=== PATIENT | female | born 1945 | race Caucasian/White ===

== ENCOUNTER 2018-03-20 10:09 | Inpatient (IN) | payer OTHER ==
[~2018-03-20] VITALS: Ht 160 cm; Wt 88.9 kg
[~2018-03-20 10:09] MED LIST: FURO-151; LEVO500T2 PO
[2018-03-20 12:23] LABS: BASOPHILS % 0.8 % (0.0-2.0); EOSINOPHILS % 8.4 % (0.0-5.0); HEMATOCRIT. 37.8 % (36.0-48.0); HEMOGLOBIN. 12.3 g/dL (12.0-16.0); LYMPHOCYTES % 24.1 % (20.0-50.0); MEAN CORPUSCULAR HEMOGLOBIN 27.9 pg (28.0-32.0); MEAN PLATELET VOLUME 8.7 fl (7.4-10.4); MONOCYTES % 8.1 % (2.0-8.0); NEUTROPHILS % 58.6 % (40.0-76.0); PLATELET 357 x1000/uL (130-400); RED CELL DISTRIBUTION WIDTH 14.7 % (11.6-14.6)
[2018-03-20 12:27] LABS: CHLORIDE 110 mEq/L (98-107)
[2018-03-20 12:58] LABS: *AMPHETAMINES SCREEN URINE PRESUMTIVE POSITIVE (NEGATIVE); *BARBITURATES SCREEN URINE NEGATIVE (NEGATIVE)
[2018-03-20 12:59] LABS: *BENZODIAZEPINES SCREEN URINE NEGATIVE (NEGATIVE); *COCAINE SCREEN URINE NEGATIVE (NEGATIVE); CANNABINOID URINE SCREEN NEGATIVE (NEGATIVE); METHADONE URINE SCREEN NEGATIVE (NEGATIVE); OPIATES URINE SCREEN NEGATIVE (NEGATIVE); PHENCYCLIDINE URINE SCREEN NEGATIVE (NEGATIVE)
[2018-03-20] MEDS: VANCOMYCIN 1 G PREMIX 200 ML IV SCH (13:41)
[2018-03-20 16:00] VITALS: BP 127/65
[2018-03-20] MEDS ORDERED: DOCUSATE SODIUM 100MG CAPSULE PO PRN (16:15)
[2018-03-20] MEDS ORDERED: ACETAMINOPHEN 325MG TABLET PO PRN (16:15)
[2018-03-20] MEDS ORDERED: IPRATROPIUM/ALBUTEROL 0.5-3(2.5)MG/3ML NEB INH PRN (16:15)
[2018-03-20] MEDS ORDERED: HYDROCODONE/ACETAMINOPHEN 10/325MG TABLET PO PRN (16:15)
[2018-03-20] MEDS ORDERED: DIPHENHYDRAMINE 50MG/ML VIAL IV PRN (16:15)
[2018-03-20] MEDS ORDERED: ACETAMINOPHEN 650MG SUPP PR PRN (16:15)
[2018-03-20] MEDS ORDERED: GUAIFENESIN 200MG/10ML SUGAR FREE UDC PO PRN (16:15)
[2018-03-20] MEDS ORDERED: ACETAMINOPHEN 650MG/20.3ML UDC GT PRN (16:15)
[2018-03-20] MEDS ORDERED: CLONIDINE 0.1MG TABLET PO PRN (16:15)
[2018-03-20] MEDS ORDERED: NA PHOS,M-B/NA PHOS,DI-BA ENEMA 118ML PR PRN (16:15)
[2018-03-20] MEDS ORDERED: MAGNESIUM/ALUMINUM HYDROXIDE/SIMETHICONE 30ML UDC PO PRN (16:15)
[2018-03-20 20:00] VITALS: BP 121/63
[2018-03-20] MEDS ORDERED: LEVOFLOXACIN 500MG PREMIX 100 ML IV SCH (20:00)
[2018-03-20 21:00] VITALS: BP 121/63
[2018-03-20] MEDS: ENOXAPARIN 30MG/0.3ML SYR SUBCUT SCH (23:02)
[2018-03-20] MEDS: SODIUM CHLORIDE 0.9% INJ 3ML FLUSH IVF SCH (23:03)
[2018-03-21] VITALS: BP 117/62
[2018-03-21 04:00] VITALS: BP 116/65
[2018-03-21] MEDS ORDERED: VANCOMYCIN 750 MG PREMIX 150 ML IV SCH (05:00)
[2018-03-21 06:42] LABS: EOSINOPHILS % 12.5 % (0.0-5.0); HEMATOCRIT. 35.8 % (36.0-48.0); HEMOGLOBIN. 11.6 g/dL (12.0-16.0); LYMPHOCYTES % 30.2 % (20.0-50.0); MEAN PLATELET VOLUME 9.4 fl (7.4-10.4); MONOCYTES % 9.8 % (2.0-8.0); NEUTROPHILS % 46.5 % (40.0-76.0); PLATELET 309 x1000/uL (130-400); RED BLOOD CELL COUNT 4.16 mill/uL (4.2-5.4)
[2018-03-21 07:30] LABS: CHLORIDE 112 mEq/L (98-107)
[2018-03-21 08:00] VITALS: BP 113/65
[2018-03-21] MEDS: HYDROCODONE/ACETAMINOPHEN 5/325MG TABLET PO PRN ×2 (08:10→13:50)
[2018-03-21] MEDS: ENOXAPARIN 30MG/0.3ML SYR SUBCUT SCH ×2 (08:11→20:46)
[2018-03-21 12:00] VITALS: BP 97/50
[2018-03-21] MEDS: VANCOMYCIN 1 G PREMIX 200 ML IV SCH (12:08)
[2018-03-21] MEDS: SODIUM CHLORIDE 0.9% INJ 3ML FLUSH IVF SCH ×2 (13:49→23:27)
[2018-03-21 16:00] VITALS: BP 125/67
[2018-03-21] MEDS: NYSTATIN POWDER 15GM TOP SCH (16:56)
[2018-03-21 18:42] LABS: CLARITY URINE CLEAR (CLEAR); COLOR URINE YELLOW (YELLOW); KETONES URINE NEGATIVE (NEGATIVE); LEUKOCYTE ESTERASE URINE NEGATIVE (NEGATIVE); NITRITE URINE NEGATIVE (NEGATIVE); OCCULT BLOOD URINE NEGATIVE (NEGATIVE); PROTEIN URINE NEGATIVE (NEGATIVE); SPECIFIC GRAVITY URINE 1.017 (1.005-1.030); UROBILINOGEN URINE 0.2 E.U./dL (0.2-1.0)
[2018-03-21 20:00] VITALS: BP 125/59
[2018-03-21] MEDS: LEVOFLOXACIN 500MG PREMIX 100 ML IV SCH (23:26)
[2018-03-22] VITALS: BP 131/76
[2018-03-22 04:00] VITALS: BP 128/78
[2018-03-22] MEDS: SODIUM CHLORIDE 0.9% INJ 3ML FLUSH IVF SCH ×3 (07:14→22:41)
[2018-03-22 08:00] VITALS: BP 135/79
[2018-03-22] MEDS: VANCOMYCIN 1 G PREMIX 200 ML IV SCH (09:11)
[2018-03-22] MEDS: ENOXAPARIN 30MG/0.3ML SYR SUBCUT SCH ×2 (09:11→21:03)
[2018-03-22] MEDS: NYSTATIN POWDER 15GM TOP SCH ×2 (09:13→17:00)
[2018-03-22 12:00] VITALS: BP 114/61
[2018-03-22] MEDS: SODIUM HYPOCHLORITE 0.125% 473ML SOLUTION TOP SCH ×2 (12:19→22:41)
[2018-03-22 16:00] VITALS: BP 101/53
[2018-03-22 20:00] VITALS: BP 132/68
[2018-03-22] MEDS: LEVOFLOXACIN 500MG PREMIX 100 ML IV SCH (21:02)
[2018-03-23] VITALS: BP 141/95
[2018-03-23] MEDS: SODIUM HYPOCHLORITE 0.125% 473ML SOLUTION TOP SCH ×2 (00:18→09:19)
[2018-03-23 04:00] VITALS: BP 139/78
[2018-03-23] MEDS: SODIUM CHLORIDE 0.9% INJ 3ML FLUSH IVF SCH (05:12)
[2018-03-23 06:42] LABS: VANCOMYCIN TROUGH 11.9 ug/mL (5.0-10.0)
[2018-03-23] MEDS ORDERED: VANC750V2 IV (07:50)
[2018-03-23] MEDS: ENOXAPARIN 30MG/0.3ML SYR SUBCUT SCH (09:17)
[2018-03-23] MEDS: VANCOMYCIN 1 G PREMIX 200 ML IV SCH (09:17)
[2018-03-23] MEDS: NYSTATIN POWDER 15GM TOP SCH (09:19)
[2018-03-23 16:10] LABS: BASOPHILS % 1.1 % (0.0-2.0); EOSINOPHILS % 5.2 % (0.0-5.0); HEMATOCRIT. 38.3 % (36.0-48.0); HEMOGLOBIN. 12.5 g/dL (12.0-16.0); MEAN CORPUSCULAR VOLUME 85.5 fL (81.0-99.0); MEAN PLATELET VOLUME 9.3 fl (7.4-10.4); NEUTROPHILS % 55.7 % (40.0-76.0); PLATELET 348 x1000/uL (130-400); PROTHROMBIN TIME 10.1 sec (9.4-11.6); RED BLOOD CELL COUNT 4.48 mill/uL (4.2-5.4); RED CELL DISTRIBUTION WIDTH 14.4 % (11.6-14.6)
[2018-03-23 16:11] LABS: CHLORIDE 106 mEq/L (98-107)
[2018-03-23] MEDS ORDERED: LEVOFLOXACIN 500MG TABLET PO SCH (21:00)
[2018-03-24] MEDS ORDERED: VANCOMYCIN 1 G PREMIX 200 ML IV SCH ×2 (02:00)
== END 2018-03-23 15:55 | disposition left against medical advice (07) | DRG 579 ==
LOC: ER 12:21 → 6EST 14:11 → ENRESERV 16:10
PROVIDERS: ADMIT Family Medicine; ATTEND Family Medicine
PROC: 0KBN0ZZ Excision of Right Hip Muscle, Open Approach (ICD-10-PCS; principal; 2018-03-22)
DX: L03.116 Cellulitis of left lower limb (principal); L89.324 Pressure ulcer of left buttock, stage 4; L03.115 Cellulitis of right lower limb; E66.9 Obesity, unspecified; L30.8 Other specified dermatitis; F15.10 Other stimulant abuse, uncomplicated; Z53.21 Procedure and treatment not carried out due to patient leaving prior to being seen by health care provider; F17.210 Nicotine dependence, cigarettes, uncomplicated; R26.9 Unspecified abnormalities of gait and mobility; I11.0 Hypertensive heart disease with heart failure; I50.9 Heart failure, unspecified; Z86.718 Personal history of other venous thrombosis and embolism; Z86.73 Personal history of transient ischemic attack (TIA), and cerebral infarction without residual deficits; Z68.34 Body mass index [BMI] 34.0-34.9, adult; Z88.0 Allergy status to penicillin; Z86.14 Personal history of Methicillin resistant Staphylococcus aureus infection
CPT/HCPCS: 36415; 71045; 80048; 80053; 80202; 80305; 81003; 85025; 85610; 96365; 96366; 97162; 99285; J1650; J1956; J3370

== ENCOUNTER 2018-06-30 01:02 | Inpatient (IN) | payer OTHER ==
[~2018-06-30] VITALS: Ht 171.4 cm; Wt 95.3 kg
[~2018-06-30 01:02] MED LIST changes: -FURO-151; +FURO-151 PO; +VANC750V2 IV
[2018-06-30] MEDS ORDERED: ONDANSETRON HCL 4MG/2ML INJ IV STA ×2 (01:51→05:33)
[2018-06-30] MEDS ORDERED: MORPHINE SULFATE 4 MG/ML CPJ (NOT FOR IM USE) IV STA ×2 (01:51→05:33)
[2018-06-30] MEDS ORDERED: VANCOMYCIN 1 G PREMIX 200 ML IV ONE (02:00)
[2018-06-30] MEDS ORDERED: SODIUM CHLORIDE 0.9% 1000ML BAG (SEPSIS BOLUS) IV ONE (02:00)
[2018-06-30] MEDS ORDERED: LEVOFLOXACIN 750MG PREMIX 150 ML IV ONE (02:00)
[2018-06-30 03:35] LABS: BASOPHILS % 0.7 % (0.0-2.0); EOSINOPHILS % 5.7 % (0.0-5.0); HEMATOCRIT. 39.9 % (36.0-48.0); HEMOGLOBIN. 12.8 g/dL (12.0-16.0); LYMPHOCYTES % 15.3 % (20.0-50.0); MEAN CORPUSCULAR HEMOGLOBIN 28.4 pg (28.0-32.0); MEAN PLATELET VOLUME 8.5 fl (7.4-10.4); MONOCYTES % 4.8 % (2.0-8.0); NEUTROPHILS % 73.5 % (40.0-76.0); PLATELET 377 x1000/uL (130-400); RED BLOOD CELL COUNT 4.53 mill/uL (4.2-5.4)
[2018-06-30 03:42] LABS: PARTIAL THROMBOPLASTIN TIME 27.6 sec (23.4-31.0); PROTHROMBIN TIME 9.8 sec (9.1-11.1)
[2018-06-30 03:45] LABS: CHLORIDE 109 mEq/L (98-107)
[2018-06-30] MEDS ORDERED: FUROSEMIDE 40MG/4ML VIAL IV ONE (04:15)
[2018-06-30] MEDS ORDERED: NITROGLYCERIN 0.4MG TABLET SL SL PRN (04:15)
[2018-06-30] MEDS ORDERED: ASPIRIN 81MG TABLET PO ONE (04:15)
[2018-06-30] MEDS ORDERED: CLONIDINE 0.1MG TABLET PO PRN (16:45)
[2018-06-30] MEDS ORDERED: ONDANSETRON HCL 4MG/2ML INJ IV PRN (16:45)
[2018-06-30] MEDS ORDERED: TEMAZEPAM 15MG CAPSULE PO PRN (16:45)
[2018-06-30] MEDS ORDERED: MAGNESIUM HYDROXIDE 400MG/5ML 30ML UDC PO PRN (16:45)
[2018-06-30] MEDS ORDERED: ACETAMINOPHEN 325MG TABLET PO PRN (16:45)
[2018-06-30] MEDS ORDERED: DIPHENHYDRAMINE 50MG CAPSULE PO PRN (16:45)
[2018-06-30] MEDS ORDERED: IPRATROPIUM/ALBUTEROL 0.5-3(2.5)MG/3ML NEB INH PRN (16:45)
[2018-06-30] MEDS ORDERED: MAGNESIUM/ALUMINUM HYDROXIDE/SIMETHICONE 30ML UDC PO PRN (16:45)
[2018-06-30 20:40] VITALS: BP 105/46
[2018-06-30] MEDS ORDERED: ENOXAPARIN 40MG/0.4ML SYR SUBCUT SCH (21:00)
[2018-06-30] MEDS ORDERED: VANCOMYCIN 1250MG in DEXTROSE 5% WATER 250ML IV SCH (22:00)
[2018-06-30] MEDS: SODIUM CHLORIDE 0.9% INJ 3ML FLUSH IVF SCH (22:00)
[2018-06-30] MEDS: KETOROLAC 30MG/ML VIAL IV PRN (22:09)
[2018-06-30] MEDS ORDERED: LEVOFLOXACIN 250MG PREMIX 50 ML IV SCH (23:00)
[2018-06-30] MEDS: FAMOTIDINE 20MG TABLET PO SCH (23:25)
[2018-07-01 00:16] VITALS: BP 129/46
[2018-07-01 04:00] VITALS: BP 145/73
[2018-07-01 08:00] VITALS: BP 119/54
[2018-07-01] MEDS ORDERED: PNEUMOCOCCAL 23-VAL P-SAC VAC 0.5 ML IM ONE (08:00)
[2018-07-01] MEDS: KETOROLAC 30MG/ML VIAL IV PRN ×2 (09:19→22:05)
[2018-07-01] MEDS: DOCUSATE SODIUM 100MG CAPSULE PO SCH (09:19)
[2018-07-01] MEDS: METOLAZONE 10MG TABLET PO SCH (09:19)
[2018-07-01] MEDS ORDERED: LIDOCAINE HCL/PF 1% 10 MG/ML 30ML VIAL INFIL SCH (09:30)
[2018-07-01] MEDS ORDERED: INFLUENZA VIRUS VACCINE(AFLURIA) 0.5ML SYR IM ONE (10:00)
[2018-07-01] MEDS: ACETAMINOPHEN WITH CODEINE 300/30MG TABLET PO PRN (12:18)
[2018-07-01] MEDS: SODIUM CHLORIDE 0.9% INJ 3ML FLUSH IVF SCH ×2 (14:00→21:57)
[2018-07-01] MEDS: NYSTATIN 100,000 UNITS/GM CREAM 15GM TOP SCH (15:26)
[2018-07-01 16:00] VITALS: BP 127/62
[2018-07-01 17:10] LABS: CLARITY URINE CLEAR (CLEAR); COLOR URINE YELLOW (YELLOW); KETONES URINE NEGATIVE (NEGATIVE); LEUKOCYTE ESTERASE URINE NEGATIVE (NEGATIVE); NITRITE URINE NEGATIVE (NEGATIVE); OCCULT BLOOD URINE 1+ (NEGATIVE); PROTEIN URINE NEGATIVE (NEGATIVE); SPECIFIC GRAVITY URINE 1.011 (1.005-1.030); UROBILINOGEN URINE 0.2 E.U./dL (0.2-1.0)
[2018-07-01] MEDS: LEVOFLOXACIN 500MG PREMIX 100 ML IV SCH (18:20)
[2018-07-01 18:27] LABS: *AMPHETAMINES SCREEN URINE PRESUMTIVE POSITIVE (NEGATIVE); *BARBITURATES SCREEN URINE NEGATIVE (NEGATIVE); *BENZODIAZEPINES SCREEN URINE NEGATIVE (NEGATIVE); *COCAINE SCREEN URINE NEGATIVE (NEGATIVE); METHADONE URINE SCREEN NEGATIVE (NEGATIVE)
[2018-07-01 18:28] LABS: CANNABINOID URINE SCREEN NEGATIVE (NEGATIVE); OPIATES URINE SCREEN PRESUMTIVE POSITIVE (NEGATIVE); PHENCYCLIDINE URINE SCREEN NEGATIVE (NEGATIVE)
[2018-07-01] MEDS: ENOXAPARIN 30MG/0.3ML SYR SUBCUT SCH (21:56)
[2018-07-01] MEDS: VANCOMYCIN 1 G PREMIX 200 ML IV SCH (21:56)
[2018-07-01] MEDS: FAMOTIDINE 20MG TABLET PO SCH (21:57)
[2018-07-02 00:10] VITALS: BP 127/62
[2018-07-02 04:00] VITALS: BP 146/75
[2018-07-02] MEDS: NYSTATIN 100,000 UNITS/GM CREAM 15GM TOP SCH ×2 (06:00→17:48)
[2018-07-02] MEDS: SODIUM CHLORIDE 0.9% INJ 3ML FLUSH IVF SCH ×3 (06:00→20:45)
[2018-07-02 08:00] VITALS: BP 98/49
[2018-07-02] MEDS: METOLAZONE 10MG TABLET PO SCH (08:18)
[2018-07-02] MEDS: DOCUSATE SODIUM 100MG CAPSULE PO SCH (08:18)
[2018-07-02] MEDS: ENOXAPARIN 30MG/0.3ML SYR SUBCUT SCH ×2 (08:19→20:44)
[2018-07-02] MEDS: ACETAMINOPHEN WITH CODEINE 300/30MG TABLET PO PRN ×2 (08:27→20:49)
[2018-07-02 12:00] VITALS: BP 127/68
[2018-07-02] MEDS: VANCOMYCIN 1 G PREMIX 200 ML IV SCH (13:45)
[2018-07-02 16:00] VITALS: BP 116/72
[2018-07-02] MEDS: LEVOFLOXACIN 500MG PREMIX 100 ML IV SCH (17:49)
[2018-07-02 20:06] VITALS: BP 110/54
[2018-07-02 20:29] LABS: HEMATOCRIT 33.9 % (36.0-48.0); MEAN CORPUSCULAR HEMOGLOBIN 28.5 pg (28.0-32.0); MEAN CORPUSCULAR VOLUME 87.9 fL (81.0-99.0); PLATELET 341 x1000/uL (130-400); RED BLOOD CELL COUNT 3.85 mill/uL (4.2-5.4); RED CELL DISTRIBUTION WIDTH 15.1 % (11.6-14.6)
[2018-07-02] MEDS: FAMOTIDINE 20MG TABLET PO SCH (20:44)
[2018-07-02 21:31] LABS: T4 FREE 0.99 ng/dL (0.76-1.46)
[2018-07-03 00:05] VITALS: BP 134/63
[2018-07-03 04:00] VITALS: BP 130/62
[2018-07-03] MEDS: SODIUM CHLORIDE 0.9% INJ 3ML FLUSH IVF SCH (05:36)
[2018-07-03] MEDS: NYSTATIN 100,000 UNITS/GM CREAM 15GM TOP SCH (05:36)
[2018-07-03] MEDS: KETOROLAC 30MG/ML VIAL IV PRN (06:00)
[2018-07-03] MEDS ORDERED: LIDOCAINE HCL 1% 20ML VIAL (Pyxis) INJ ONE (07:18)
[2018-07-03 08:00] VITALS: BP 139/70
[2018-07-03 08:29] LABS: HEMATOCRIT 34.6 % (36.0-48.0); HEMOGLOBIN 11.5 g/dL (12.0-16.0); MEAN CORPUSCULAR HEMOGLOBIN 28.8 pg (28.0-32.0); MEAN CORPUSCULAR VOLUME 86.7 fL (81.0-99.0); PLATELET 399 x1000/uL (130-400); RED BLOOD CELL COUNT 3.99 mill/uL (4.2-5.4); RED CELL DISTRIBUTION WIDTH 14.8 % (11.6-14.6)
[2018-07-03] MEDS: ENOXAPARIN 30MG/0.3ML SYR SUBCUT SCH (09:00)
[2018-07-03] MEDS: VANCOMYCIN 1 G PREMIX 200 ML IV SCH (09:00)
[2018-07-03] MEDS: METOLAZONE 10MG TABLET PO SCH (09:00)
[2018-07-03] MEDS: DOCUSATE SODIUM 100MG CAPSULE PO SCH (09:00)
[2018-07-03] MEDS ORDERED: INFLUENZA VIRUS VACCINE(AFLURIA) 0.5ML SYR IM ONE (11:00)
[2018-07-03] MEDS ORDERED: PNEUMOCOCCAL 23-VAL P-SAC VAC 0.5 ML IM ONE (11:00)
[2018-07-03 12:00] VITALS: BP 128/76
[2018-07-03 12:29] VITALS: BP 94/139
== END 2018-07-03 14:59 | DRG 570 ==
LOC: ER 01:02 → 7WST 04:39 → EDBEDREQTM 04:48 → EDBEDREQSVC 04:48 → EDBEDREQ 04:48 → CANRESERV 16:42 → ENRESERV 16:42
PROVIDERS: ADMIT Internal Medicine; ATTEND Internal Medicine
PROC: 0JBN0ZZ Excision of Right Lower Leg Subcutaneous Tissue and Fascia, Open Approach (ICD-10-PCS; principal; 2018-07-01)
PROC: B5181ZA Fluoroscopy of Superior Vena Cava using Low Osmolar Contrast, Guidance (ICD-10-PCS; 2018-07-03)
PROC: 02HV33Z Insertion of Infusion Device into Superior Vena Cava, Percutaneous Approach (ICD-10-PCS; 2018-07-03)
PROC: B548ZZA Ultrasonography of Superior Vena Cava, Guidance (ICD-10-PCS; 2018-07-03)
DX: L03.115 Cellulitis of right lower limb (principal); I50.33 Acute on chronic diastolic (congestive) heart failure; E44.0 Moderate protein-calorie malnutrition; L97.919 Non-pressure chronic ulcer of unspecified part of right lower leg with unspecified severity; E66.2 Morbid (severe) obesity with alveolar hypoventilation; L03.116 Cellulitis of left lower limb; I50.9 Heart failure, unspecified; E86.0 Dehydration; F15.10 Other stimulant abuse, uncomplicated; G62.9 Polyneuropathy, unspecified; I11.0 Hypertensive heart disease with heart failure; R26.9 Unspecified abnormalities of gait and mobility; I83.009 Varicose veins of unspecified lower extremity with ulcer of unspecified site; I87.2 Venous insufficiency (chronic) (peripheral); Z68.32 Body mass index [BMI] 32.0-32.9, adult; Z87.891 Personal history of nicotine dependence; Z88.0 Allergy status to penicillin; Z79.2 Long term (current) use of antibiotics; Z79.899 Other long term (current) drug therapy
CPT/HCPCS: 36415; 36569; 71045; 76937; 77001; 80048; 80061; 80202; 80305; 83036; 83605; 83735; 83880; 84134; 84439; 84443; 84484; 85027; 90686; 90732; 93005; 93970; 96365; 96375; 97022; 97162; 99285; C1725; J1650; J1885; J1940; J1956; J2270; J2405; J3370; J3490; J7030; J7050; J7060; A4315

== ENCOUNTER 2018-08-12 08:17 | Inpatient (IN) | payer OTHER ==
[~2018-08-12] VITALS: Ht 157.5 cm; Wt 103.4 kg
[~2018-08-12 08:17] MED LIST changes: -FURO-151 PO
[2018-08-12] MEDS ORDERED: CLINDAMYCIN 600 MG in DEXTROSE 5% WATER 50 ML IV ONE (09:00)
[2018-08-12 09:07] LABS: BASOPHILS % 0.9 % (0.0-2.0); EOSINOPHILS % 3.4 % (0.0-5.0); HEMOGLOBIN. 12.9 g/dL (12.0-16.0); LYMPHOCYTES % 16.4 % (20.0-50.0); MEAN CORPUSCULAR HEMOGLOBIN 28.1 pg (28.0-32.0); MONOCYTES % 6.4 % (2.0-8.0); NEUTROPHILS % 72.9 % (40.0-76.0); PLATELET 552 x1000/uL (130-400); RED CELL DISTRIBUTION WIDTH 14.6 % (11.6-14.6)
[2018-08-12 09:13] LABS: CHLORIDE 107 mEq/L (98-107)
[2018-08-12] MEDS ORDERED: KETOROLAC 15MG/ML VIAL IV ONE (10:30)
[2018-08-12 12:00] VITALS: BP 126/78
[2018-08-12] MEDS ORDERED: LEVOFLOXACIN 500MG TABLET PO NR (12:00)
[2018-08-12] MEDS: HYDROCODONE/ACETAMINOPHEN 5/325MG TABLET PO PRN ×2 (12:45→17:28)
[2018-08-12] MEDS ORDERED: VANCOMYCIN 1 G PREMIX 200 ML IV NR (13:00)
[2018-08-12] MEDS ORDERED: NICOTINE 14MG PATCH TD SCH (13:00)
[2018-08-12 14:10] VITALS: BP 123/74
[2018-08-12] MEDS ORDERED: ACETAMINOPHEN 650MG SUPP PR PRN (15:15)
[2018-08-12] MEDS ORDERED: ACETAMINOPHEN 650MG/20.3ML UDC PO PRN (15:15)
[2018-08-12] MEDS ORDERED: CLONIDINE 0.1MG TABLET PO PRN (15:15)
[2018-08-12] MEDS ORDERED: ONDANSETRON 4MG ODT PO PRN (15:15)
[2018-08-12] MEDS ORDERED: DIPHENHYDRAMINE 50MG/ML VIAL IV PRN (15:15)
[2018-08-12] MEDS ORDERED: DOCUSATE SODIUM 100MG CAPSULE PO PRN (15:15)
[2018-08-12 16:00] VITALS: BP 123/74
[2018-08-12] MEDS ORDERED: VANCOMYCIN 1500MG in DEXTROSE 5% WATER 250ML IV NR (16:30)
[2018-08-12 17:39] VITALS: BP 123/74
[2018-08-12 19:41] VITALS: BP 142/86
[2018-08-13] MEDS ORDERED: LEVOFLOXACIN 500MG TABLET PO SCH (11:00)
[2018-08-13] MEDS ORDERED: VANCOMYCIN 1250MG in DEXTROSE 5% WATER 250ML IV SCH (16:00)
== END 2018-08-12 20:40 | DRG 603 ==
LOC: ER 08:17 → 6EST 11:20 → EDBEDREQSVC 11:22 → EDBEDREQTM 11:26 → EDBEDREQ 11:26 → ENRESERV 13:13 → EDBEDREQ 13:35
PROVIDERS: ADMIT Internal Medicine; ATTEND Internal Medicine
DX: L03.115 Cellulitis of right lower limb (principal); Z68.41 Body mass index [BMI] 40.0-44.9, adult; L03.116 Cellulitis of left lower limb; I50.9 Heart failure, unspecified; I11.0 Hypertensive heart disease with heart failure; K44.9 Diaphragmatic hernia without obstruction or gangrene; F17.210 Nicotine dependence, cigarettes, uncomplicated; E66.9 Obesity, unspecified; E86.0 Dehydration; Z91.19 Patient's noncompliance with other medical treatment and regimen; Z79.2 Long term (current) use of antibiotics
CPT/HCPCS: 36415; 71045; 87070; 87077; 87186; 93005; 96365; 99285; J1885; J3370; J3490; J7040; J7060

== ENCOUNTER 2018-12-19 01:35 | Inpatient (IN) | payer OTHER ==
[~2018-12-19] VITALS: Ht 157.5 cm; Wt 90.7 kg
[2018-12-19] MEDS ORDERED: IPRATROPIUM BROMIDE (0.02%) 0.5MG/2.5ML NEB HHN STA (02:01)
[2018-12-19] MEDS ORDERED: ONDANSETRON HCL 4MG/2ML INJ IV STA (02:01)
[2018-12-19] MEDS ORDERED: ALBUTEROL (0.083%) 2.5MG/3ML NEB HHN STA (02:01)
[2018-12-19] MEDS ORDERED: METHYLPREDNISOLONE SOD SUCC 125 MG/2 ML VIAL IV STA (02:01)
[2018-12-19] MEDS ORDERED: MEROPENEM 1,000 MG in SODIUM CHLORIDE 0.9% 100 ML IV ONE (02:15)
[2018-12-19] MEDS ORDERED: VANCOMYCIN 1 G PREMIX 200 ML IV ONE (02:15)
[2018-12-19 02:56] LABS: CHLORIDE 105 mEq/L (98-107); HEMATOCRIT. 37.8 % (36.0-48.0); HEMOGLOBIN. 12.1 g/dL (12.0-16.0); MEAN CORPUSCULAR HEMOGLOBIN 26.9 pg (28.0-32.0); MEAN CORPUSCULAR VOLUME 83.9 fL (81.0-99.0); MEAN PLATELET VOLUME 8.2 fl (7.4-10.4); PLATELET 386 x1000/uL (130-400); RED CELL DISTRIBUTION WIDTH 18.2 % (11.6-14.6)
[2018-12-19 02:58] LABS: INR 0.9; PROTHROMBIN TIME 9.4 sec (9.6-11.0)
[2018-12-19 05:13] LABS: ATYPICAL LYMPHOCYTES 1; PLATELET ESTIMATE NORMAL
[2018-12-19] MEDS ORDERED: ONDANSETRON HCL 4MG/2ML INJ IV PRN (10:45)
[2018-12-19] MEDS ORDERED: ACETAMINOPHEN 325MG TABLET PO PRN (10:45)
[2018-12-19] MEDS ORDERED: BUDESONIDE 0.5MG/2ML NEB HHN NR (12:15)
[2018-12-19] MEDS ORDERED: LEVOFLOXACIN 500MG PREMIX 100 ML IV SCH ×2 (12:15)
[2018-12-19] MEDS ORDERED: FUROSEMIDE 40MG/4ML VIAL IVP NR (12:15)
[2018-12-19] MEDS ORDERED: ENOXAPARIN 30MG/0.3ML SYR SUBCUT NR (17:30)
[2018-12-20] VITALS (12 sets, daily range): BP systolic 115–150; BP diastolic 64–89
[2018-12-20] MEDS ORDERED: IOHEXOL-350 100 ML BOTTLE ONE (01:05)
[2018-12-20] MEDS: PANTOPRAZOLE SODIUM 40 MG/VIAL IV SCH (03:07)
[2018-12-20] MEDS: METRONIDAZOLE 500 MG PREMIX 100 ML IV SCH ×4 (03:07→21:03)
[2018-12-20] MEDS: VANCOMYCIN 1 G PREMIX 200 ML IV SCH ×2 (04:43→22:15)
[2018-12-20 06:42] LABS: BASOPHILS % 0.3 % (0.0-2.0); EOSINOPHILS % 0.2 % (0.0-5.0); HEMATOCRIT. 30.3 % (36.0-48.0); HEMOGLOBIN. 9.7 g/dL (12.0-16.0); LYMPHOCYTES % 13.4 % (20.0-50.0); MEAN CORPUSCULAR HEMOGLOBIN 26.8 pg (28.0-32.0); MEAN CORPUSCULAR VOLUME 83.9 fL (81.0-99.0); MEAN PLATELET VOLUME 8.4 fl (7.4-10.4); MONOCYTES % 7.4 % (2.0-8.0); NEUTROPHILS % 78.7 % (40.0-76.0); PLATELET 357 x1000/uL (130-400); RED BLOOD CELL COUNT 3.61 mill/uL (4.2-5.4); RED CELL DISTRIBUTION WIDTH 17.6 % (11.6-14.6)
[2018-12-20 07:28] LABS: CHLORIDE 108 mEq/L (98-107)
[2018-12-20] MEDS ORDERED: DIATR MEGLU/DIATRIZOATE SOLN 30ML ONE ×2 (08:09→10:27)
[2018-12-20] MEDS: FUROSEMIDE 40MG/4ML VIAL IVP SCH (09:59)
[2018-12-20] MEDS ORDERED: LEVOFLOXACIN 500MG PREMIX 100 ML IV SCH (10:00)
[2018-12-20] MEDS ORDERED: BUPIVACAINE HCL 0.5% (5MG/ML) 50ML ONE (10:03)
[2018-12-20] MEDS: LEVOFLOXACIN 500MG PREMIX 100 ML IV SCH (11:54)
[2018-12-20] MEDS ORDERED: MORPHINE SULFATE 4 MG/ML CPJ (NOT FOR IM USE) IV NR (15:45)
[2018-12-20] MEDS: ENOXAPARIN 30MG/0.3ML SYR SUBCUT SCH (20:37)
[2018-12-21] VITALS (14 sets, daily range): BP systolic 87–139; BP diastolic 43–81
[2018-12-21] MEDS: BUDESONIDE 0.5MG/2ML NEB HHN SCH ×3 (01:00→19:56)
[2018-12-21] MEDS: IPRATROPIUM/ALBUTEROL 0.5-3(2.5)MG/3ML NEB HHN PRN ×3 (01:00→19:57)
[2018-12-21] MEDS: METRONIDAZOLE 500 MG PREMIX 100 ML IV SCH ×4 (02:52→21:32)
[2018-12-21 05:36] LABS: BASOPHILS % 0.3 % (0.0-2.0); EOSINOPHILS % 0.8 % (0.0-5.0); HEMATOCRIT. 33.3 % (36.0-48.0); HEMOGLOBIN. 10.6 g/dL (12.0-16.0); LYMPHOCYTES % 14.2 % (20.0-50.0); MEAN CORPUSCULAR HEMOGLOBIN 26.6 pg (28.0-32.0); MEAN CORPUSCULAR VOLUME 83.3 fL (81.0-99.0); MEAN PLATELET VOLUME 8.6 fl (7.4-10.4); MONOCYTES % 8.5 % (2.0-8.0); NEUTROPHILS % 76.2 % (40.0-76.0); PLATELET 370 x1000/uL (130-400); RED CELL DISTRIBUTION WIDTH 17.6 % (11.6-14.6)
[2018-12-21 05:40] LABS: PARTIAL THROMBOPLASTIN TIME 28.7 sec (23.4-31.0); PROTHROMBIN TIME 10.5 sec (9.6-11.0)
[2018-12-21 06:07] LABS: CHLORIDE 103 mEq/L (98-107)
[2018-12-21] MEDS: PANTOPRAZOLE SODIUM 40 MG/VIAL IV SCH (09:47)
[2018-12-21] MEDS: FUROSEMIDE 40MG/4ML VIAL IVP SCH (09:47)
[2018-12-21] MEDS: VANCOMYCIN 750 MG PREMIX 150 ML IV SCH ×2 (11:09→23:01)
[2018-12-21] MEDS: ENOXAPARIN 30MG/0.3ML SYR SUBCUT SCH ×2 (11:10→21:32)
[2018-12-21] MEDS: LEVOFLOXACIN 500MG PREMIX 100 ML IV SCH (13:08)
[2018-12-22] VITALS (16 sets, daily range): BP systolic 84–111; BP diastolic 41–72
[2018-12-22] MEDS: METRONIDAZOLE 500 MG PREMIX 100 ML IV SCH ×4 (03:41→20:50)
[2018-12-22 07:30] LABS: BASOPHILS % 0.5 % (0.0-2.0); EOSINOPHILS % 1.1 % (0.0-5.0); HEMATOCRIT. 34.1 % (36.0-48.0); HEMOGLOBIN. 10.9 g/dL (12.0-16.0); LYMPHOCYTES % 15.2 % (20.0-50.0); MEAN CORPUSCULAR HEMOGLOBIN 26.7 pg (28.0-32.0); MEAN CORPUSCULAR VOLUME 83.5 fL (81.0-99.0); MEAN PLATELET VOLUME 8.3 fl (7.4-10.4); NEUTROPHILS % 76.2 % (40.0-76.0); PLATELET 380 x1000/uL (130-400); RED BLOOD CELL COUNT 4.09 mill/uL (4.2-5.4)
[2018-12-22] MEDS ORDERED: LIDOCAINE HCL/EPINEPHRINE 1%-EPI 1:100,000 20 ML VIAL INFIL NR (07:30)
[2018-12-22 07:41] LABS: CHLORIDE 106 mEq/L (98-107)
[2018-12-22] MEDS: ENOXAPARIN 30MG/0.3ML SYR SUBCUT SCH ×2 (09:21→20:41)
[2018-12-22] MEDS: FUROSEMIDE 40MG/4ML VIAL IVP SCH (09:22)
[2018-12-22] MEDS: FAMOTIDINE 20MG/2ML VIAL IV SCH ×2 (09:22→20:41)
[2018-12-22] MEDS: BUDESONIDE 0.5MG/2ML NEB HHN SCH ×2 (10:05→20:39)
[2018-12-22] MEDS: LEVOFLOXACIN 500MG PREMIX 100 ML IV SCH (11:30)
[2018-12-22] MEDS: VANCOMYCIN 750 MG PREMIX 150 ML IV SCH ×2 (11:33→22:32)
[2018-12-22] MEDS: MORPHINE SULFATE 4 MG/ML CPJ (NOT FOR IM USE) IV PRN ×2 (12:48→20:43)
[2018-12-23] VITALS (9 sets, daily range): BP systolic 82–130; BP diastolic 41–68
[2018-12-23] MEDS: METRONIDAZOLE 500 MG PREMIX 100 ML IV SCH ×3 (03:00→16:39)
[2018-12-23 06:36] LABS: HEMATOCRIT 34.1 % (36.0-48.0); HEMOGLOBIN 11.1 g/dL (12.0-16.0); MEAN CORPUSCULAR HEMOGLOBIN 27.1 pg (28.0-32.0); MEAN CORPUSCULAR VOLUME 83.1 fL (81.0-99.0); PLATELET 372 x1000/uL (130-400); RED CELL DISTRIBUTION WIDTH 17.5 % (11.6-14.6)
[2018-12-23] MEDS: BUDESONIDE 0.5MG/2ML NEB HHN SCH (07:51)
[2018-12-23] MEDS: FAMOTIDINE 20MG/2ML VIAL IV SCH (09:51)
[2018-12-23] MEDS: FUROSEMIDE 40MG/4ML VIAL IVP SCH (09:51)
[2018-12-23] MEDS: ENOXAPARIN 30MG/0.3ML SYR SUBCUT SCH (09:52)
[2018-12-23] MEDS: VANCOMYCIN 750 MG PREMIX 150 ML IV SCH (12:44)
[2018-12-23] MEDS: LEVOFLOXACIN 500MG PREMIX 100 ML IV SCH (12:45)
[2018-12-23] MEDS ORDERED: POTASSIUM CHLORIDE INJ 40 MEQ in DEXT 5% WATER 250 ML IV SCH (18:00)
== END 2018-12-23 21:20 | DRG 853 ==
LOC: ER 01:35 → 5EST 05:52 → EDBEDREQSVC 05:55 → EDBEDREQTM 05:55 → EDBEDREQ 05:55 → ENRESERV 20:32
PROVIDERS: ADMIT Internal Medicine; ATTEND Internal Medicine
PROC: 0JBN0ZZ Excision of Right Lower Leg Subcutaneous Tissue and Fascia, Open Approach (ICD-10-PCS; principal; 2018-12-22)
PROC: 0JBN0ZZ Excision of Right Lower Leg Subcutaneous Tissue and Fascia, Open Approach (ICD-10-PCS; 2018-12-22)
PROC: 0JBN0ZZ Excision of Right Lower Leg Subcutaneous Tissue and Fascia, Open Approach (ICD-10-PCS; 2018-12-22)
DX: A41.9 Sepsis, unspecified organism (principal); J96.01 Acute respiratory failure with hypoxia; I50.33 Acute on chronic diastolic (congestive) heart failure; J18.9 Pneumonia, unspecified organism; J44.0 Chronic obstructive pulmonary disease with (acute) lower respiratory infection; E44.1 Mild protein-calorie malnutrition; L03.115 Cellulitis of right lower limb; L03.116 Cellulitis of left lower limb; L97.919 Non-pressure chronic ulcer of unspecified part of right lower leg with unspecified severity; J44.1 Chronic obstructive pulmonary disease with (acute) exacerbation; L97.929 Non-pressure chronic ulcer of unspecified part of left lower leg with unspecified severity; R26.9 Unspecified abnormalities of gait and mobility; K66.8 Other specified disorders of peritoneum; F15.90 Other stimulant use, unspecified, uncomplicated; K44.9 Diaphragmatic hernia without obstruction or gangrene; D64.9 Anemia, unspecified; E87.6 Hypokalemia; F17.210 Nicotine dependence, cigarettes, uncomplicated; I11.0 Hypertensive heart disease with heart failure; I87.2 Venous insufficiency (chronic) (peripheral); Z86.73 Personal history of transient ischemic attack (TIA), and cerebral infarction without residual deficits; Z88.0 Allergy status to penicillin; Z79.899 Other long term (current) drug therapy; Z71.6 Tobacco abuse counseling; Z68.36 Body mass index [BMI] 36.0-36.9, adult
CPT/HCPCS: 36415; 71045; 71275; 74176; 80048; 80202; 83605; 83880; 84145; 84484; 85027; 86850; 86900; 86920; 93005; 93306; 93970; 94640; 94660; 96365; 96366; 97022; 97116; 97162; 97530; 99291; C9113; J1650; J1940; J1956; J2185; J2270; J2405; J2930; J3370; J3480; J3490; J7050; J7060; J7611; J7620; J7626; Q9963; Q9967

== ENCOUNTER 2019-03-23 08:22 | Inpatient (IN) | payer OTHER ==
[~2019-03-23] VITALS: Ht 170.2 cm; Wt 89.4 kg
[~2019-03-23 08:22] MED LIST changes: +FURO80TA87 MT
[2019-03-23 08:45] LABS: BASOPHILS % 1.1 % (0.0-2.0); HEMATOCRIT. 40.8 % (36.0-48.0); HEMOGLOBIN. 12.8 g/dL (12.0-16.0); LYMPHOCYTES % 24.5 % (20.0-50.0); MEAN CORPUSCULAR HEMOGLOBIN 26.1 pg (28.0-32.0); MEAN CORPUSCULAR VOLUME 83.1 fL (81.0-99.0); MEAN PLATELET VOLUME 8.6 fl (7.4-10.4); MONOCYTES % 5.4 % (2.0-8.0); PLATELET 381 x1000/uL (130-400); RED BLOOD CELL COUNT 4.92 mill/uL (4.2-5.4); RED CELL DISTRIBUTION WIDTH 18.2 % (11.6-14.6)
[2019-03-23] MEDS ORDERED: ADENOSINE 3 MG/ML 2ML VIAL IV ONE ×2 (08:45)
[2019-03-23] MEDS ORDERED: LORAZEPAM 2MG/ML CPJ ONE (08:48)
[2019-03-23 08:52] LABS: CHLORIDE 112 mEq/L (98-107)
[2019-03-23] MEDS ORDERED: LORAZEPAM 2MG/ML CPJ IV ONE (09:00)
[2019-03-23] MEDS ORDERED: DIPHENHYDRAMINE 50MG/ML VIAL IV PRN (12:45)
[2019-03-23] MEDS ORDERED: CLONIDINE 0.1MG TABLET PO PRN (12:45)
[2019-03-23] MEDS ORDERED: DOCUSATE SODIUM 100MG CAPSULE PO PRN (12:45)
[2019-03-23] MEDS ORDERED: PIPERACILLIN/TAZ 2.25G PREMIX 50 ML IV SCH (12:45)
[2019-03-23] MEDS ORDERED: GUAIFENESIN 200MG/10ML SUGAR FREE UDC PO PRN (12:45)
[2019-03-23] MEDS ORDERED: IPRATROPIUM/ALBUTEROL 0.5-3(2.5)MG/3ML NEB INH PRN (12:45)
[2019-03-23] MEDS ORDERED: DEXTROSE 50% WATER 50ML SYRINGE IV PRN (12:45)
[2019-03-23] MEDS ORDERED: HYDROCODONE/ACETAMINOPHEN 5/325MG TABLET PO PRN (12:45)
[2019-03-23] MEDS ORDERED: ACETAMINOPHEN 650MG SUPP PR PRN (12:45)
[2019-03-23] MEDS ORDERED: ONDANSETRON HCL 4MG/2ML INJ IV PRN (12:45)
[2019-03-23] MEDS ORDERED: ACETAMINOPHEN 325MG TABLET PO PRN (12:45)
[2019-03-23] MEDS ORDERED: LORAZEPAM 0.5MG TABLET PO PRN (12:45)
[2019-03-23] MEDS ORDERED: MAGNESIUM/ALUMINUM HYDROXIDE/SIMETHICONE 30ML UDC PO PRN (12:45)
[2019-03-23] MEDS ORDERED: NA PHOS,M-B/NA PHOS,DI-BA ENEMA 118ML PR PRN (12:45)
[2019-03-23 13:22] LABS: BG BASE EXCESS -3.6 mmol/L (-2.0-2.0); BG CARBOXYHEMOGLOBIN 0.6 % (0.5-1.5); BG FRACTION INSPIRED OXYGEN 32; BG HCO3 ACT 21.6 mmol/L (22.0-26.0); BG METHEMOGLOBIN 0.3 % (0.0-1.5); BG OXYHEMOGLOBIN 95.1 % (94.0-97.0); BG PCO2 39.5 mmHg (35.0-45.0); BG PH 7.356 (7.350-7.450); BG SAMPLE SITE RIGHT RADIAL; BG TOTAL HEMOGLOBIN 11.7 g/dL (12.0-18.0); BG VENT MODE NASAL CANNULA
[2019-03-23] MEDS ORDERED: VANCOMYCIN 1 G PREMIX 200 ML IV ONE (14:00)
[2019-03-23] MEDS ORDERED: FAMOTIDINE 20MG/2ML VIAL IV SCH (14:00)
[2019-03-23] MEDS: BLOOD SUGAR DIAGNOSTIC STRIP TEST SCH ×3 (15:30→22:19)
[2019-03-23] MEDS: INSULIN LISPRO 100 UNITS/ML SUBCUT SCH ×2 (15:30→21:00)
[2019-03-23] MEDS: METHYLPREDNISOLONE SOD SUCC 40 MG/ML VIAL IV SCH ×2 (15:36→22:27)
[2019-03-23] MEDS: LEVOFLOXACIN 500MG PREMIX 100 ML IV SCH (15:36)
[2019-03-23] MEDS: FUROSEMIDE 40MG/4ML VIAL IV SCH (15:36)
[2019-03-23 16:30] LABS: ETHANOL BLOOD < 10 mg/dL
[2019-03-23 16:35] LABS: CREATINE KINASE 115 IU/L (26-192)
[2019-03-23 16:36] LABS: CREATINE KINASE MB FRACTION 9.9 ng/mL (0.5-3.6)
[2019-03-23] MEDS ORDERED: CLONIDINE 0.2MG TABLET PO PRN (16:45)
[2019-03-23] MEDS: ENOXAPARIN 40MG/0.4ML SYR SUBCUT SCH (17:27)
[2019-03-23] MEDS: BUDESONIDE 0.5MG/2ML NEB HHN SCH (18:10)
[2019-03-23] MEDS: IPRATROPIUM/ALBUTEROL 0.5-3(2.5)MG/3ML NEB INH SCH ×2 (18:10→19:30)
[2019-03-23 20:22] LABS: CLARITY URINE CLEAR (CLEAR); COLOR URINE YELLOW (YELLOW); KETONES URINE NEGATIVE (NEGATIVE); LEUKOCYTE ESTERASE URINE TRACE (NEGATIVE); NITRITE URINE NEGATIVE (NEGATIVE); OCCULT BLOOD URINE NEGATIVE (NEGATIVE); PH URINE 6.5 (4.5-8.0); PROTEIN URINE NEGATIVE (NEGATIVE); SPECIFIC GRAVITY URINE 1.007 (1.005-1.030); UROBILINOGEN URINE 0.2 E.U./dL (0.2-1.0)
[2019-03-23 21:30] VITALS: BP 143/92
[2019-03-23 22:00] VITALS: BP 149/77
[2019-03-23] MEDS: FAMOTIDINE 20MG/2ML VIAL IV SCH (22:26)
[2019-03-23 22:36] LABS: *AMPHETAMINES SCREEN URINE PRESUMTIVE POSITIVE (NEGATIVE); *BARBITURATES SCREEN URINE NEGATIVE (NEGATIVE); *BENZODIAZEPINES SCREEN URINE NEGATIVE (NEGATIVE); CANNABINOID URINE SCREEN NEGATIVE (NEGATIVE)
[2019-03-23 22:37] LABS: *COCAINE SCREEN URINE NEGATIVE (NEGATIVE); METHADONE URINE SCREEN NEGATIVE (NEGATIVE); OPIATES URINE SCREEN NEGATIVE (NEGATIVE); PHENCYCLIDINE URINE SCREEN NEGATIVE (NEGATIVE)
[2019-03-24] VITALS (14 sets, daily range): BP systolic 104–149; BP diastolic 57–87
[2019-03-24] MEDS: DILTIAZEM HCL 90MG TABLET PO SCH ×4 (00:11→17:35)
[2019-03-24] MEDS: BUDESONIDE 0.5MG/2ML NEB HHN SCH ×3 (00:20→20:47)
[2019-03-24] MEDS: IPRATROPIUM/ALBUTEROL 0.5-3(2.5)MG/3ML NEB INH SCH ×4 (00:20→20:46)
[2019-03-24] MEDS: VANCOMYCIN 750 MG PREMIX 150 ML IV SCH ×2 (04:53→17:32)
[2019-03-24 06:07] LABS: BASOPHILS % 0.4 % (0.0-2.0); HEMATOCRIT. 37.7 % (36.0-48.0); LYMPHOCYTES % 14.1 % (20.0-50.0); MEAN CORPUSCULAR HEMOGLOBIN 26.1 pg (28.0-32.0); MEAN CORPUSCULAR VOLUME 82.2 fL (81.0-99.0); MEAN PLATELET VOLUME 8.9 fl (7.4-10.4); MONOCYTES % 1.1 % (2.0-8.0); NEUTROPHILS % 84.4 % (40.0-76.0); PLATELET 341 x1000/uL (130-400); RED BLOOD CELL COUNT 4.59 mill/uL (4.2-5.4); RED CELL DISTRIBUTION WIDTH 18.2 % (11.6-14.6)
[2019-03-24] MEDS: METHYLPREDNISOLONE SOD SUCC 40 MG/ML VIAL IV SCH ×2 (06:29→13:01)
[2019-03-24] MEDS: BLOOD SUGAR DIAGNOSTIC STRIP TEST SCH ×4 (06:35→21:47)
[2019-03-24 07:33] LABS: CHLORIDE 109 mEq/L (98-107)
[2019-03-24 07:48] LABS: LDL CHOLESTEROL 88 mg/dL (5-100)
[2019-03-24 07:49] LABS: HDL CHOLESTEROL 56 mg/dL (40-59); T4 FREE 1.08 ng/dL (0.76-1.46)
[2019-03-24] MEDS: INSULIN LISPRO 100 UNITS/ML SUBCUT SCH ×4 (09:22→21:00)
[2019-03-24] MEDS: ASPIRIN 81MG EC TABLET PO SCH (09:22)
[2019-03-24] MEDS: FUROSEMIDE 40MG/4ML VIAL IV SCH (09:22)
[2019-03-24] MEDS: FAMOTIDINE 20MG/2ML VIAL IV SCH ×2 (09:22→21:00)
[2019-03-24] MEDS: LEVOFLOXACIN 500MG PREMIX 100 ML IV SCH (13:01)
[2019-03-24] MEDS: ENOXAPARIN 40MG/0.4ML SYR SUBCUT SCH (13:02)
[2019-03-24] MEDS ORDERED: METHYLPREDNISOLONE SOD SUCC 40 MG/ML VIAL IV SCH (22:00)
[2019-03-25] VITALS (8 sets, daily range): BP systolic 102–135; BP diastolic 49–77
[2019-03-25] MEDS ORDERED: PREDNISONE 20MG TABLET PO SCH
[2019-03-25] MEDS: FAMOTIDINE 20MG TABLET PO SCH ×2 (00:17→09:22)
[2019-03-25] MEDS: DILTIAZEM HCL 90MG TABLET PO SCH ×3 (00:17→12:43)
[2019-03-25] MEDS: IPRATROPIUM/ALBUTEROL 0.5-3(2.5)MG/3ML NEB INH SCH ×2 (00:40→07:18)
[2019-03-25] MEDS: VANCOMYCIN 750 MG PREMIX 150 ML IV SCH (05:59)
[2019-03-25] MEDS: BLOOD SUGAR DIAGNOSTIC STRIP TEST SCH ×2 (06:32→11:50)
[2019-03-25] MEDS: BUDESONIDE 0.5MG/2ML NEB HHN SCH (07:17)
[2019-03-25] MEDS: INSULIN LISPRO 100 UNITS/ML SUBCUT SCH ×2 (07:20→12:08)
[2019-03-25 07:41] LABS: HEMATOCRIT 37.3 % (36.0-48.0); HEMOGLOBIN 11.7 g/dL (12.0-16.0); MEAN CORPUSCULAR HEMOGLOBIN 25.8 pg (28.0-32.0); MEAN CORPUSCULAR VOLUME 82.4 fL (81.0-99.0); PLATELET 367 x1000/uL (130-400); RED BLOOD CELL COUNT 4.52 mill/uL (4.2-5.4); RED CELL DISTRIBUTION WIDTH 18.2 % (11.6-14.6)
[2019-03-25 08:10] LABS: VANCOMYCIN TROUGH 14.8 ug/mL (5.0-10.0)
[2019-03-25] MEDS: FUROSEMIDE 40MG/4ML VIAL IV SCH (08:56)
[2019-03-25] MEDS: ASPIRIN 81MG EC TABLET PO SCH (09:22)
== END 2019-03-25 13:50 | disposition left against medical advice (07) | DRG 291 ==
LOC: ER 08:22 → 3WST 11:35 → SUPCPDRO 12:33 → ENRESERV 14:33 → CANRESERV 14:33 → EDBEDREQSVC 16:27 → ENRESERV 18:18
PROVIDERS: ADMIT Internal Medicine; ATTEND Internal Medicine
PROC: 5A2204Z Restoration of Cardiac Rhythm, Single (ICD-10-PCS; principal; 2019-03-23)
DX: I13.0 Hypertensive heart and chronic kidney disease with heart failure and stage 1 through stage 4 chronic kidney disease, or unspecified chronic kidney disease (principal); J96.00 Acute respiratory failure, unspecified whether with hypoxia or hypercapnia; J18.9 Pneumonia, unspecified organism; J44.1 Chronic obstructive pulmonary disease with (acute) exacerbation; N39.0 Urinary tract infection, site not specified; I47.1 Supraventricular tachycardia; I74.10 Embolism and thrombosis of unspecified parts of aorta; L97.919 Non-pressure chronic ulcer of unspecified part of right lower leg with unspecified severity; J44.0 Chronic obstructive pulmonary disease with (acute) lower respiratory infection; E66.2 Morbid (severe) obesity with alveolar hypoventilation; L03.116 Cellulitis of left lower limb; L03.115 Cellulitis of right lower limb; I42.9 Cardiomyopathy, unspecified; K44.9 Diaphragmatic hernia without obstruction or gangrene; N18.9 Chronic kidney disease, unspecified; I50.9 Heart failure, unspecified; R74.0 Nonspecific elevation of levels of transaminase and lactic acid dehydrogenase [LDH]; R73.9 Hyperglycemia, unspecified; F15.10 Other stimulant abuse, uncomplicated; I71.4 Abdominal aortic aneurysm, without rupture; I89.0 Lymphedema, not elsewhere classified; I45.81 Long QT syndrome; Z53.20 Procedure and treatment not carried out because of patient's decision for unspecified reasons; Z53.21 Procedure and treatment not carried out due to patient leaving prior to being seen by health care provider; I87.2 Venous insufficiency (chronic) (peripheral); B95.61 Methicillin susceptible Staphylococcus aureus infection as the cause of diseases classified elsewhere; Z91.19 Patient's noncompliance with other medical treatment and regimen; Z86.73 Personal history of transient ischemic attack (TIA), and cerebral infarction without residual deficits; Z82.49 Family history of ischemic heart disease and other diseases of the circulatory system; Z88.0 Allergy status to penicillin; Z79.899 Other long term (current) drug therapy; Z68.30 Body mass index [BMI] 30.0-30.9, adult
CPT/HCPCS: 36415; 36600; 71045; 76700; 78582; 80048; 80061; 80202; 80305; 80320; 82140; 82375; 82550; 82553; 82805; 82962; 83735; 83880; 84439; 84443; 84484; 85027; 87070; 87077; 93005; 93970; 94640; 96374; 96375; 97162; 97535; 99291; A9558; J0153; J1650; J1815; J1940; J1956; J2060; J2920; J3370; J3490; J7050; J7512; J7620; J7626; G0480